=== PATIENT | female | born 1965 | race Caucasian/White ===

== ENCOUNTER → 2018-05-23 15:01 | Outpatient (CLI) | payer BC, SELFPAY ==
[2018-05-27 09:25] LABS: HPV Reflexed? NOT INDICATED
--- OUTSIDE RECORDS SUMMARY | 2018-07-19 07:21 | XMS RPT_ITS ---
:1965 Author Organization [facility] Care Team Providers Name Role Phone SINTIA STILL Referring Unavailable [facility] (MOTORCYCLE MECHANIC) Attending Unavailable IQRA VILLALPANDO Attending Unavailable [facility] (MOTORCYCLE MECHANIC) Referring Unavailable SINTIA STILL Attending Unavailable SINTIA STILL Attending Unavailable Reanna Estrella Attending Unavailable Reanna Estrella Referring Unavailable Tomasa Still Primary Care Unavailable PROBLEMS PROBLEMS DATE TYPE CONDITION / CODE ATTENDING STATUS SOURCE 05/23/2018 Unknown Z12.4 - Encounter Reanna Estrella Active Daryl for screening for Community malignant neoplasm [facility] / Repository Z12.4(ICD-10) 01/13/2018 Active Unknown / SINTIA STILL Active [facility] UNK(Unknown) R [place] Repository 01/07/2018 Active Impaired fasting NA Active [facility] glucose / [place] R73.01(ICD-10) Repository 01/16/2008 Active Essential NA Active [facility] (primary) [place] hypertension / Repository I10(ICD-10) 10/15/2017 Active Hyperglycemia, NA Active [facility] unspecified / [facility] [place] R73.9(ICD-10) Repository 10/15/2017 Active Pure NA Active [facility] hypercholesterolem [place] ia, unspecified / Repository E78.00(ICD-10) PROCEDURES PROCEDURES No Procedure Records FoundRESULTS RESULTS PAP I-G W/RFX HRHPV Collected: 05/23/2018 Status: F Source: [place] 11:45 AM [facility] REPOSITORY Order Comment: CYTOLOGY INFORMATION: - CLINICAL INFORMATION: - DATE LMP/MENOPAUSE: 05/04/18 LMP - COLLECTION VIAL: Thin Prep Vial - DRY CLEANER HAND SOURCE: CERVICAL/ENDOCERVICAL - COLLECTION TECHNIQUE: BRUSH/SPATULA Specimen Comment: [id number] Specimen Comment: Source.............Cervix;Endocervix Specimen Comment: LMP / Prev Treat...[id number]=[id number] Specimen Comment: No. of containers..01 ThinPrep Vial TYPE CODE TESTS RESULT OUT OF RANGE REFERENCE UNITS LAB L7400.0800 . Normal DIAGN Comment Result Comment: NEGATIVE FOR INTRAEPITHELIAL LESION AND MALIGNANCY. LAB L7400.0900 . Normal ADEQ Comment Result Comment: Satisfactory for evaluation. Endocervical and/or squamous metaplastic cells (endocervical component) are present. LAB L7400.1400 . Normal PERFORM Comment Result Comment: Meeta Hyde, Supervisory Jackscrew Worker (ASCP) LAB L7400.2575 . Normal TEST METHOD Comment Result Comment: This liquid based ThinPrep(R) pap test was screened with the use of an image guided system. LAB L7400.2600 . Normal . COMM LAB L7400.2700 . Normal PAPSMR Comment Result Comment: The Pap smear is a screening test designed to aid in the detection of premalignant and malignant conditions of the uterine cervix. It is not a diagnostic procedure and should not be used as the sole means of detecting cervical cancer. Both false-positive and false-negative reports do occur. LAB L7400.2800 . Normal HPV RFLX Comment Result Comment: The HPV DNA reflex criteria were not met with this specimen result therefore, no HPV testing was performed. Performed at: [address] [id number] [place]: Maribel Whiting MD, Phone: [phone] Performed By: #### L7400.0350 #### [facility] (refer to report for specific site) refer to report for address and phone number FECAL OCCULT BLD Collected: 05/23/2018 Status: F Source: [facility] 5:57 AM [facility] REPOSITORY TYPE CODE TESTS RESULT OUT OF REFERENCE UNITS RANGE LAB IFO Negative Immuno Negative FOB Result Comment: This test was developed and its performance characteristics determined by [facility]'s [facility] ([facility]). It has not been cleared or approved by the FDA. [facility] is regulated under CLIA as qualified to perform high-complexity testing. This test is used for clinical purposes. It should not be regarded as investigational or for research. Performed By: #### IFOBT #### [facility] [address] [place], [place] [address] PROGRESS Observed: 05/01/2018 Status: COMPLETED Source: [place] 8:52 AM [facility] [place] REPOSITORY HNO ID: [id number] Author: Sintia Still Service: (none) Author Type: Physician Type: Progress Notes Filed: 05/01/2018 10:43 AM Note Text: Chief Complaint Patient presents with: Follow Up HPI Rachel Terry is a 52 year old female who presents here today for follow-up of chronic situational insomnia. blood pressure. . HTN, doing well. Patient denies any exertional chest pain, dyspnea, palpitations, syncope, orthopnea, edema or paroxysmal nocturnal dyspnea. adherent to current regimen without side effects from medication. No current symptoms. She doesn't need any refills right now. Lorazepam. Uses Past medical history, appointments, medications, allergies reviewed. Previous Medical History PAST MEDICAL HISTORY Diagnosis Date - Anxiety - Cataracts, bilateral seeing telecommunications specialist - Essential hypertension, benign 01/16/2008 - Mitral valve disorders(424.0) 11/12/2008 - Obesity, unspecified 03/01/2007 Previous Surgical History PAST SURGICAL HISTORY Procedure Laterality Date - DANDC, DIAG AND/OR THERAPEUTIC - DENTAL SURGERY PROCEDURE wisdom teeth removed - EXCIS VAGINAL SEPTUM uterine - REPAIR OF NASAL SEPTUM removed septum Family History FAMILY HISTORY Problem Relation Age of Onset - Hypertension Father - Heart Father heart disease - Diabetes Mother - Heart Paternal Grandmother - None Sister - None Brother - None Brother Patient Allergies ALLERGIES Allergen Reactions - Hctz [Hydrochloroth* Rash - Sulfa (Sulfonamide * Hives Current Medications Current Outpatient Prescriptions on File Prior to Visit: lisinopril (ZESTRIL, PRINIVIL) 10 mg tablet Take 1 tablet by mouth once daily. metoprolol succinate ER (TOPROL XL) 100 mg Tb24 Take 1 tablet by mouth once daily. melatonin 10 mg tab Take 1 tablet by mouth at bedtime as needed. No current facility-administered medications on file prior to visit. Social History Social History Marital status: Spouse name: Regi Years of education: Number of children: 2 Occupational History Occupation Employer Comment [employer]* Social History Main Topics Smoking status: Never Smoker Smokeless tobacco: Never Used Alcohol use: No Drug use: No Sexual activity: Yes Partners with: Female ROS: General: Feels well, no weight changes, fever, chills. HEENT: No sinus congestion, earache, sore throat. Cardiac: No chest pain, palpitations, shortness of breath Resp: No cough, wheeze. GI: No reflux symptoms, food intolerance, bowel changes. : No urinary frequency, dysuria. MS: No pain or joint complaints. PHYSICAL EXAMINATION BP 129/68 (BP Site: Left Arm, BP Position: Sitting, BP Cuff Size: Large Adult) Pulse 71 Temp 37.1 ?C (98.8 ?F) Resp 16 Ht 167.6 cm (5' 6) Wt 97.2 kg (214 lb 3.2 oz) LMP 03/11/2018 BMI 34.57 kg/m? General: Alert and oriented, no distress, pleasant and cooperative. Heart: Regular, normal S1 and S2, no murmurs, rubs, or gallops Lungs: Clear to auscultation bilaterally Abdomen: Benign Extremities: Feet/ankles without edema, posterior tibial pulses full and symmetrical Health Maintenance List MAMMOGRAM due on 02/24/2017 PAP EVERY 5 YEARS due on 06/07/2017 HPV EVERY 5 YEARS due on 06/07/2017 FECAL OCCULT BLOOD due on 07/30/2017 INFLUENZA(1) due on 02/25/2018 DTAP,TDAP,TD(2 - Td) due on 11/12/2018 ANNUAL PCP TEAM CHRONIC DISEASE VISIT due on 01/13/2019 BP CONTROLLED (<130/80) due on 05/01/2019 DIABETES SCREEN due on 01/07/2021 LIPID SCREEN due on 10/15/2022 Data reviewed Lab Results Component Value Date/Time CHOL 178 10/15/2017 09:45 AM HDL 35 (L) 10/15/2017 09:45 AM LDL 118 (H) 10/15/2017 09:45 AM HBA1C 5.6 01/07/2018 08:53 AM TSH 3.880 04/21/2013 09:01 AM PDMP website checked and validated. All prescriptions have been APPROPRIATELY filled. No suspicious activity was identified. 05/01/2018 by Sintia Still MD Assessment/Plan: (I10) Essential hypertension, benign (primary encounter diagnosis) Comment: bp well controlled. Plan: Continue regimen (F51.02) Adjustment insomnia Comment: Using the lorazepam 1 mg about every other day on average. Encourage her to cut that down to a couple of times a week in order to avoid getting into a habituation to the medication. Plan: See orders (Z12.11) Encounter for screening fecal occult blood testing Comment: Plan: FECAL OCCULT BLOOD TEST Routine Signed Prescriptions Disp Refills LORazepam (ATIVAN) 1 mg tablet 90 tablet 0 Sig: Take 0.5-1 tablets by mouth every 8 hours as needed for Anxiety for up to 180 days. ISAAC Class: C-IV DANIELLA: No RTO: Sintia Still MD CNOV Observed: 05/01/2018 Status: COMPLETED Source: [place] 8:40 AM [facility] REPOSITORY Office Visit (FPWADS) RACHEL TERRY ([id number]) 1965 F Date Time Provider Department 05/01/18 8:40 AM SINTIA STILL During your visit today, we recorded the following information about you: Temperature Pulse Respiration Blood pressure 98.8 degrees 71/minute 16/minute 129/68 Weight Height Last Period 97.2 kg 1.676 m 03/11/18 Sintia Still MD 05/01/2018 10:43 AM Signed Chief Complaint Patient presents with: Follow Up HPI Rachel Florian Mimi is a 52 year old female who presents here today for follow-up of chronic situational insomnia. blood pressure. . HTN, doing well. Patient denies any exertional chest pain, dyspnea, palpitations, syncope, orthopnea, edema or paroxysmal nocturnal dyspnea. adherent to current regimen without side effects from medication. No current symptoms. She doesn't need any refills right now. Lorazepam. Uses Past medical history, appointments, medications, allergies reviewed. Previous Medical History PAST MEDICAL HISTORY Diagnosis Date - Anxiety - Cataracts, bilateral seeing telecommunications specialist - Essential hypertension, benign 01/16/2008 - Mitral valve disorders(424.0) 11/12/2008 - Obesity, unspecified 03/01/2007 Previous Surgical History PAST SURGICAL HISTORY Procedure Laterality Date - DANDC, DIAG AND/OR THERAPEUTIC - DENTAL SURGERY PROCEDURE wisdom teeth removed - EXCIS VAGINAL SEPTUM uterine - REPAIR OF NASAL SEPTUM removed septum Family History FAMILY HISTORY Problem Relation Age of Onset - Hypertension Father - Heart Father heart disease - Diabetes Mother - Heart Paternal Grandmother - None Sister - None Brother - None Brother Patient Allergies ALLERGIES Allergen Reactions - Hctz [Hydrochloroth* Rash - Sulfa (Sulfonamide * Hives Current Medications Current Outpatient Prescriptions on File Prior to Visit: lisinopril (ZESTRIL, PRINIVIL) 10 mg tablet Take 1 tablet by mouth once daily. metoprolol succinate ER (TOPROL XL) 100 mg Tb24 Take 1 tablet by mouth once daily. melatonin 10 mg tab Take 1 tablet by mouth at bedtime as needed. No current facility-administered medications on file prior to visit. Social History Social History Marital status: Spouse name: Regi Years of education: Number of children: 2 Occupational History Occupation Employer Comment [employer] Social History Main Topics Smoking status: Never Smoker Smokeless tobacco: Never Used Alcohol use: No Drug use: No Sexual activity: Yes Partners with: Female ROS: General: Feels well, no weight changes, fever, chills. HEENT: No sinus congestion, earache, sore throat. Cardiac: No chest pain, palpitations, shortness of breath Resp: No cough, wheeze. GI: No reflux symptoms, food intolerance, bowel changes. : No urinary frequency, dysuria. MS: No pain or joint complaints. PHYSICAL EXAMINATION BP 129/68 (BP Site: Left Arm, BP Position: Sitting, BP Cuff Size: Large Adult) Pulse 71 Temp 37.1 ?C (98.8 ?F) Resp 16 Ht 167.6 cm (5' 6) Wt 97.2 kg (214 lb 3.2 oz) LMP 03/11/2018 BMI 34.57 kg/m? General: Alert and oriented, no distress, pleasant and cooperative. Heart: Regular, normal S1 and S2, no murmurs, rubs, or gallops Lungs: Clear to auscultation bilaterally Abdomen: Benign Extremities: Feet/ankles without edema, posterior tibial pulses full and symmetrical Health Maintenance List MAMMOGRAM due on 02/24/2017 PAP EVERY 5 YEARS due on 06/07/2017 HPV EVERY 5 YEARS due on 06/07/2017 FECAL OCCULT BLOOD due on 07/30/2017 INFLUENZA(1) due on 02/25/2018 DTAP,TDAP,TD(2 - Td) due on 11/12/2018 ANNUAL PCP TEAM CHRONIC DISEASE VISIT due on 01/13/2019 BP CONTROLLED (<130/80) due on 05/01/2019 DIABETES SCREEN due on 01/07/2021 LIPID SCREEN due on 10/15/2022 Data reviewed Lab Results Component Value Date/Time CHOL 178 10/15/2017 09:45 AM HDL 35 (L) 10/15/2017 09:45 AM LDL 118 (H) 10/15/2017 09:45 AM HBA1C 5.6 01/07/2018 08:53 AM TSH 3.880 04/21/2013 09:01 AM PDMP website checked and validated. All prescriptions have been APPROPRIATELY filled. No suspicious activity was identified. 05/01/2018 by Sintia Still MD Assessment/Plan: (I10) Essential hypertension, benign (primary encounter diagnosis) Comment: bp well controlled. Plan: Continue regimen (F51.02) Adjustment insomnia Comment: Using the lorazepam 1 mg about every other day on average. Encourage her to cut that down to a couple of times a week in order to avoid getting into a habituation to the medication. Plan: See orders (Z12.11) Encounter for screening fecal occult blood testing Comment: Plan: FECAL OCCULT BLOOD TEST Routine Signed Prescriptions Disp Refills LORazepam (ATIVAN) 1 mg tablet 90 tablet 0 Sig: Take 0.5-1 tablets by mouth every 8 hours as needed for Anxiety for up to 180 days. ISAAC Class: C-IV DANIELLA: No RTO: Sintia Still MD Referring Provider: SELF [200] Allergies As of Date: 05/01/2018 Noted Allergy Reaction HCTZ (HYDROCHLOROTHIAZIDE) 01/13/2018 2 - Rash SULFA (SULFONAMIDE ANTIBIOTICS) 05/13/2006 4 - Hives Date Reviewed: 05/01/2018 Reviewed by: Shawanda Owen Ma - Fully Assessed Reason for Visit: Follow Up [171] Primary Visit Diagnosis:Essential hypertension, benign [I10] Other Visit Diagnoses:Adjustment insomnia [F51.02] Encounter for screening fecal occult blood testing [Z12.11] Order(s):LORazepam (ATIVAN) 1 mg tabletTake 0.5-1 tablets by mouth every 8 hours as needed for Anxiety for up to 180 days.Disp: 90 tabletRfl: 0 FECAL OCCULT BLOOD TEST [SQIFOBT] Order #: [id number] FUTURE Prescriptions as of 05/01/2018 Sig: LORAZEPAM 1 MG TABLET Take 1 mg by mouth every 6 ho* LISINOPRIL 10 MG TABLET Take 1 tablet by mouth once d* METOPROLOL SUCCINATE ER 100 M* Take 1 tablet by mouth once d* MELATONIN 10 MG TABLET Take 1 tablet by mouth at bed* LORAZEPAM 1 MG TABLET Take 0.5-1 tablets by mouth e* Problem List As Of Date 05/01/2018 Noted Resolved ELEV BL PRES W/O HYPERTN [R03.0] INVALID FOR*11/12/2008 OBESITY NOS [E66.9] INVALID FOR* More... BENIGN HYPERTENSION [I10] INVALID FOR* MITRAL VALVE DISORDER [I05.9] INVALID FOR* More... Closed Fracture of Ankle [S82.899A] INVALID FOR* Adjustment insomnia [F51.02] INVALID FOR* Prescriptions ordered this encounter Disp Refills Start End LORAZEPAM 1 MG TABLET 90 t* 0 05/01/2018 10/28/2018 Class: Print RX Route: ORAL Sig: Take 0.5-1 tablets by mouth every 8 hours as needed for Anxiety for up to 180 days. Medications Discontinued During This Encounter predniSONE (DELTASONE) 10 mg tablet 21 t* 0 12/09/2017 05/01/2018 Sig: Day 1 take 6 tablets, day 2 take 5 tablets, day 3 take 4 tablets, day 4 take 3 tablets, day 5 take 2 tablets, day 6 take 1 tablet. Patient not taking: Reported on 01/13/2018 Disc: Reason for discontinue is not on file. Encounter Status:Closed by TOMASA STILL MD on 05/01/18 PROGRESS Observed: 01/13/2018 Status: COMPLETED Source: [place] 8:50 AM [facility] [place] REPOSITORY O ID: [id number] Author: Sintia Still Service: (none) Author Type: Physician Type: Progress Notes Filed: 01/13/2018 10:48 AM Note Text: Chief Complaint Patient presents with: recheck BP HPI Rachel Terry is a 52 year old female who presents here today for follow-up of bp. She's taking Toprol and likes it. She got hives after taking hydrochlorothiazide for a few weeks. She is back to plain lisinopril. Tolerating that fine, wonders if she really needs it. She shows me her home blood pressure log with readings in the 110-120 range typically. Prior to being on lisinopril she was showing up in the 130 range Past medical history, appointments, medications, allergies reviewed. Previous Medical History PAST MEDICAL HISTORY Diagnosis Date - Anxiety - Cataracts, bilateral seeing telecommunications specialist - Essential hypertension, benign 01/16/2008 - Mitral valve disorders(424.0) 11/12/2008 - Obesity, unspecified 03/01/2007 Previous Surgical History PAST SURGICAL HISTORY Procedure Laterality Date - DANDC, DIAG AND/OR THERAPEUTIC - DENTAL SURGERY PROCEDURE wisdom teeth removed - EXCIS VAGINAL SEPTUM uterine - REPAIR OF NASAL SEPTUM removed septum Family History FAMILY HISTORY Problem Relation Age of Onset - Hypertension Father - Heart Father heart disease - Diabetes Mother - Heart Paternal Grandmother - None Sister - None Brother - None Brother Patient Allergies ALLERGIES Allergen Reactions - Sulfa (Sulfonamide * Hives Current Medications Current Outpatient Prescriptions on File Prior to Visit: LORazepam (ATIVAN) 1 mg tablet Take 0.5-1 tablets by mouth every 8 hours as needed for Anxiety for up to 90 days. metoprolol succinate ER (TOPROL XL) 100 mg Tb24 Take 1 tablet by mouth once daily. lisinopril (ZESTRIL, PRINIVIL) 10 mg tablet Take 1 tablet by mouth once daily. predniSONE (DELTASONE) 10 mg tablet Day 1 take 6 tablets, day 2 take 5 tablets, day 3 take 4 tablets, day 4 take 3 tablets, day 5 take 2 tablets, day 6 take 1 tablet. (Patient not taking: Reported on 01/13/2018 ) melatonin 10 mg tab Take 1 tablet by mouth at bedtime as needed. No current facility-administered medications on file prior to visit. Social History Social History Marital status: Spouse name: Regi Years of education: Number of children: 2 Occupational History Occupation Employer Comment [employer]* Social History Main Topics Smoking status: Never Smoker Smokeless tobacco: Never Used Alcohol use: No Drug use: No Sexual activity: Yes Partners with: Female ROS: General: Feels well, no weight changes, fever, chills. Sided symptoms status quo. HEENT: No sinus congestion, earache, sore throat. Cardiac: No chest pain, palpitations, shortness of breath Resp: No cough, wheeze. GI: No reflux symptoms, food intolerance, bowel changes. : No urinary frequency, dysuria. MS: No pain or joint complaints. PHYSICAL EXAMINATION BP 147/69 Pulse 70 Temp 36.8 ?C (98.3 ?F) Resp 18 Ht 167.6 cm (5' 6) Wt 97.5 kg (215 lb) SpO2 99% BMI 34.70 kg/m? Last 1 Encounter BP Readings: Date: BP: 01/13/2018 142/78 General: Alert and oriented, no distress, pleasant and cooperative. Heart: Regular, normal S1 and S2, no murmurs, rubs, or gallops Lungs: Clear to auscultation bilaterally Abdomen: Benign Extremities: Feet/ankles without edema, posterior tibial pulses full and symmetrical Health Maintenance List BLOOD PRESSURE CONTROLLED due on 1984 MAMMOGRAM due on 02/24/2017 PAP EVERY 5 YEARS due on 06/07/2017 HPV EVERY 5 YEARS due on 06/07/2017 FECAL OCCULT BLOOD due on 07/30/2017 ANNUAL PCP TEAM CHRONIC DISEASE VISIT due on 01/24/2018 INFLUENZA(1) due on 02/25/2018 DTAP,TDAP,TD(2 - Td) due on 11/12/2018 DIABETES SCREEN due on 01/07/2021 LIPID SCREEN due on 10/15/2022 Data reviewed PDMP website checked and validated. All prescriptions have been APPROPRIATELY filled. No suspicious activity was identified. 01/13/2018 by Sintia Still MD Assessment/Plan: (I10) Essential hypertension, benign (primary encounter diagnosis) Comment: Blood pressure control is adequate office reading is correct the high by virtue of whitecoat hypertension Plan: lisinopril (ZESTRIL, PRINIVIL) 10 mg tablet, DISCONTINUED: lisinopril (ZESTRIL, PRINIVIL) 10 mg tablet Continue the lisinopril (I10) White coat syndrome with diagnosis of hypertension Comment: Plan: lisinopril (ZESTRIL, PRINIVIL) 10 mg tablet, DISCONTINUED: lisinopril (ZESTRIL, PRINIVIL) 10 mg tablet Signed Prescriptions Disp Refills lisinopril (ZESTRIL, PRINIVIL) 10 mg tablet 90 tablet 3 Sig: Take 1 tablet by mouth once daily. DANIELLA: No RTO: Blood pressure check within a few months. Sintia Still MD CNOV Observed: 01/13/2018 Status: COMPLETED Source: [place] 8:40 AM [facility] REPOSITORY Office Visit (FPWADS) RACHEL TERRY ([id number]) 1965 F Date Time Provider Department 01/13/18 8:40 AM SINTIA STILL FPWADS During your visit today, we recorded the following information about you: Temperature Pulse Respiration Blood pressure 98.3 degrees 70/minute 18/minute 142/78 Weight Height 97.5 kg 1.676 m Sintia Still MD 01/13/2018 10:48 AM Signed Chief Complaint Patient presents with: recheck BP HPI Rachel Florian Mimi is a 52 year old female who presents here today for follow-up of bp. She's taking Toprol and likes it. She got hives after taking hydrochlorothiazide for a few weeks. She is back to plain lisinopril. Tolerating that fine, wonders if she really needs it. She shows me her home blood pressure log with readings in the 110-120 range typically. Prior to being on lisinopril she was showing up in the 130 range Past medical history, appointments, medications, allergies reviewed. Previous Medical History PAST MEDICAL HISTORY Diagnosis Date - Anxiety - Cataracts, bilateral seeing telecommunications specialist - Essential hypertension, benign 01/16/2008 - Mitral valve disorders(424.0) 11/12/2008 - Obesity, unspecified 03/01/2007 Previous Surgical History PAST SURGICAL HISTORY Procedure Laterality Date - DANDC, DIAG AND/OR THERAPEUTIC - DENTAL SURGERY PROCEDURE wisdom teeth removed - EXCIS VAGINAL SEPTUM uterine - REPAIR OF NASAL SEPTUM removed septum Family History FAMILY HISTORY Problem Relation Age of Onset - Hypertension Father - Heart Father heart disease - Diabetes Mother - Heart Paternal Grandmother - None Sister - None Brother - None Brother Patient Allergies ALLERGIES Allergen Reactions - Sulfa (Sulfonamide * Hives Current Medications Current Outpatient Prescriptions on File Prior to Visit: LORazepam (ATIVAN) 1 mg tablet Take 0.5-1 tablets by mouth every 8 hours as needed for Anxiety for up to 90 days. metoprolol succinate ER (TOPROL XL) 100 mg Tb24 Take 1 tablet by mouth once daily. lisinopril (ZESTRIL, PRINIVIL) 10 mg tablet Take 1 tablet by mouth once daily. predniSONE (DELTASONE) 10 mg tablet Day 1 take 6 tablets, day 2 take 5 tablets, day 3 take 4 tablets, day 4 take 3 tablets, day 5 take 2 tablets, day 6 take 1 tablet. (Patient not taking: Reported on 01/13/2018 ) melatonin 10 mg tab Take 1 tablet by mouth at bedtime as needed. No current facility-administered medications on file prior to visit. Social History Social History Marital status: Spouse name: Regi Years of education: Number of children: 2 Occupational History Occupation Employer Comment [employer]* Social History Main Topics Smoking status: Never Smoker Smokeless tobacco: Never Used Alcohol use: No Drug use: No Sexual activity: Yes Partners with: Female ROS: General: Feels well, no weight changes, fever, chills. Sided symptoms status quo. HEENT: No sinus congestion, earache, sore throat. Cardiac: No chest pain, palpitations, shortness of breath Resp: No cough, wheeze. GI: No reflux symptoms, food intolerance, bowel changes. : No urinary frequency, dysuria. MS: No pain or joint complaints. PHYSICAL EXAMINATION BP 147/69 Pulse 70 Temp 36.8 ?C (98.3 ?F) Resp 18 Ht 167.6 cm (5' 6) Wt 97.5 kg (215 lb) SpO2 99% BMI 34.70 kg/m? Last 1 Encounter BP Readings: Date: BP: 01/13/2018 142/78 General: Alert and oriented, no distress, pleasant and cooperative. Heart: Regular, normal S1 and S2, no murmurs, rubs, or gallops Lungs: Clear to auscultation bilaterally Abdomen: Benign Extremities: Feet/ankles without edema, posterior tibial pulses full and symmetrical Health Maintenance List BLOOD PRESSURE CONTROLLED due on 1984 MAMMOGRAM due on 02/24/2017 PAP EVERY 5 YEARS due on 06/07/2017 HPV EVERY 5 YEARS due on 06/07/2017 FECAL OCCULT BLOOD due on 07/30/2017 ANNUAL PCP TEAM CHRONIC DISEASE VISIT due on 01/24/2018 INFLUENZA(1) due on 02/25/2018 DTAP,TDAP,TD(2 - Td) due on 11/12/2018 DIABETES SCREEN due on 01/07/2021 LIPID SCREEN due on 10/15/2022 Data reviewed [facility] website checked and validated. All prescriptions have been APPROPRIATELY filled. No suspicious activity was identified. 01/13/2018 by Sintia Still MD Assessment/Plan: (I10) Essential hypertension, benign (primary encounter diagnosis) Comment: Blood pressure control is adequate office reading is correct the high by virtue of whitecoat hypertension Plan: lisinopril (ZESTRIL, PRINIVIL) 10 mg tablet, DISCONTINUED: lisinopril (ZESTRIL, PRINIVIL) 10 mg tablet Continue the lisinopril (I10) White coat syndrome with diagnosis of hypertension Comment: Plan: lisinopril (ZESTRIL, PRINIVIL) 10 mg tablet, DISCONTINUED: lisinopril (ZESTRIL, PRINIVIL) 10 mg tablet Signed Prescriptions Disp Refills lisinopril (ZESTRIL, PRINIVIL) 10 mg tablet 90 tablet 3 Sig: Take 1 tablet by mouth once daily. DANIELLA: No RTO: Blood pressure check within a few months. Sintia Still MD Referring Provider: SELF [200] Allergies As of Date: 01/13/2018 Noted Allergy Reaction HCTZ (HYDROCHLOROTHIAZIDE) 01/13/2018 2 - Rash SULFA (SULFONAMIDE ANTIBIOTICS) 05/13/2006 4 - Hives Date Reviewed: 01/13/2018 Reviewed by: Mari Esteban Ma - Fully Assessed Reason for Visit: recheck BP [Other] Primary Visit Diagnosis:Essential hypertension, benign [I10] Other Visit Diagnosis:White coat syndrome with diagnosis of hypertension [I10] Order(s):lisinopril (ZESTRIL, PRINIVIL) 10 mg tabletTake 1 tablet by mouth once daily.Disp: 90 tabletRfl: 3 Prescriptions as of 01/13/2018 Sig: LORAZEPAM 1 MG TABLET Take 0.5-1 tablets by mouth e* METOPROLOL SUCCINATE ER 100 M* Take 1 tablet by mouth once d* LISINOPRIL 10 MG TABLET Take 1 tablet by mouth once d* PREDNISONE 10 MG TABLET Day 1 take 6 tablets, day 2 t* Patient not taking: Reported on 01/13/2018 MELATONIN 10 MG TABLET Take 1 tablet by mouth at bed* Problem List As Of Date 01/13/2018 Noted Resolved ELEV BL PRES W/O HYPERTN [R03.0] INVALID FOR*11/12/2008 OBESITY NOS [E66.9] INVALID FOR* More... BENIGN HYPERTENSION [I10] INVALID FOR* MITRAL VALVE DISORDER [I05.9] INVALID FOR* More... Closed Fracture of Ankle [S82.899A] INVALID FOR* Prescriptions ordered this encounter Disp Refills Start End LISINOPRIL 10 MG TABLET 90 t* 3 01/13/2018 01/13/2018 Route: ORAL Sig: Take 1 tablet by mouth once daily. LISINOPRIL 10 MG TABLET 90 t* 3 01/13/2018 01/13/2019 Route: ORAL Sig: Take 1 tablet by mouth once daily. Medications Discontinued During This Encounter lisinopril (ZESTRIL, PRINIVIL) 10 mg* 30 t* 0 12/11/2017 01/13/2018 Route: ORAL Sig: Take 1 tablet by mouth once daily. Disc: Reason for discontinue is not on file. lisinopril (ZESTRIL, PRINIVIL) 10 mg* 90 t* 3 01/13/2018 01/13/2018 Route: ORAL Sig: Take 1 tablet by mouth once daily. Disc: Reason for discontinue is not on file. Follow-up and Disposition History Recorded Encounter Status:Closed by TOMASA STILL MD on 01/13/18 BASIC METABOLIC PANL Collected: 01/07/2018 Status: F Source: [place] 8:53 AM [facility] REPOS[facility]ORY TYPE CODE TESTS RESULT OUT OF REFERENCE UNITS RANGE LAB GLU 74-99 mg/dL Glucose 93 Result Comment: The [place] [employer] (ADA) provides guidance for cutoff values for fasting glucose and random glucose. The ADA defines fasting as no caloric intake for at least 8 hours. Fas ting plasma glucose results between 100 to 125 mg/dL indicate increased risk for diabetes (prediabetes). Fasting plasma glucose results greater than or equal to 126 mg/dL meet the criteria for diagnosis of diabetes. In the absence of unequivocal hyperglycemia, results should be confirmed by repeat testing. In a patient with classic symptoms of hyperglycemia or hyperglycemic crisis, random plasma glucose results greater than or equal to 200 mg/dL meet the criteria for diagnosis of diabetes. Reference: Standards of Medical Care in Diabetes 2016, [place] [employer]. Diabetes Care. 2016.39(Suppl 1). LAB BUN 7-21 mg/dL BUN 12 LAB CRET 0.58-0.96 mg/dL Creatinine 0.82 LAB NA 136-144 mmol/L Sodium 141 LAB K 3.7-5.1 mmol/L Potassium 4.1 LAB CL 97-105 mmol/L Chloride 103 LAB CO2 22-30 mmol/L CO2 26 LAB AGAP 9-18 mmol/L Anion Gap 12 LAB CA 8.5-10.2 mg/dL Calcium, Total 9.4 LAB GFRAA eGFR- Amer. >60 LAB GFRNAA . eGFR-All Other Races >60 Result Comment: eGFR (Estimated GFR) Units of measure: mL/min/1.73 meters squared eGFR is derived from the reexpressed MDRD Study equation using the following parameters: serum creatinine, age, gender and race. The creatinine assay has been calibrated to be traceable to IDMS. An eGFR <60 mL/min/1.73m2 for >3 months is consistent with chronic kidney disease. Refer to KDOQI guidelines for clinical interpretation. In patients with unstable renal function, e.g. those with acute kidney injury, the eGFR may not accurately reflect actual GFR. Performed By: #### BMP, HBA1C #### [facility] [address] [id number] HEMOGLOBIN A1C Collected: 01/07/2018 Status: F Source: [place] 8:53 AM [facility] REPOSITORY TYPE CODE TESTS RESULT OUT OF REFERENCE UNITS RANGE LAB HGBA1C 4.3-5.6 % Hemoglobin A1c 5.6 LAB HBA0 mg/dL Est. Average Glucose 114 Result Comment: eAG: (Estimated average glucose) is a calculated value from HgbA1c and is commercial sales representative of the average blood glucose level in the last 2-3 month period. Performed By: #### BMP, HBA1C #### [facility] [address] [place], [place] [address] RICARDO Observed: 12/11/2017 Status: COMPLETED Source: [place] 12:00 AM [facility] REPOSITORY Telephone ([facility]) RACHEL TERRY ([id number]) 1965 F Date Time Provider Department 12/11/17 IQRA VILLALPANDO ([facility]) [facility] During your visit today, we recorded the following information about you: Jose Gardner [employer] Machinist Psr 12/11/2017 11:47 AM Signed Patient stopped by and stated lisinopril prescription should be written for 1 tablet once daily not 3 tablets. Provider on duty resent corrected prescription Dulce Bansal APRN.ANGEL 12/11/2017 11:51 AM Signed Addended by: DULCE BANSAL on: 12/11/2017 11:51 AM Modules accepted: Orders Allergies As of Date: 12/11/2017 Noted Allergy Reaction SULFA (SULFONAMIDE ANTIBIOTICS) 05/13/2006 4 - Hives Date Reviewed: 12/09/2017 Reviewed by: Mari Esteban Ma - Fully Assessed Reason for Visit: Medication Problem [65] Order(s):lisinopril (ZESTRIL, PRINIVIL) 10 mg tabletTake 1 tablet by mouth once daily.Disp: 30 tabletRfl: 0 Prescriptions as of 12/11/2017 Sig: LISINOPRIL 10 MG TABLET Take 1 tablet by mouth once d* PREDNISONE 10 MG TABLET Day 1 take 6 tablets, day 2 t* LORAZEPAM 1 MG TABLET Take 0.5-1 tablets by mouth e* METOPROLOL SUCCINATE ER 100 M* Take 1 tablet by mouth once d* MELATONIN 10 MG TABLET Take 1 tablet by mouth at bed* Problem List As Of Date 12/11/2017 Noted Resolved ELEV BL PRES W/O HYPERTN [R03.0] INVALID FOR*11/12/2008 OBESITY NOS [E66.9] INVALID FOR* More... BENIGN HYPERTENSION [I10] INVALID FOR* MITRAL VALVE DISORDER [I05.9] INVALID FOR* More... Closed Fracture of Ankle [S82.899A] INVALID FOR* Prescriptions ordered this encounter Disp Refills Start End LISINOPRIL 10 MG TABLET 30 t* 0 12/11/2017 01/10/2018 Route: ORAL Sig: Take 1 tablet by mouth once daily. Medications Discontinued During This Encounter lisinopril (ZESTRIL, PRINIVIL) 10 mg* 30 t* 0 12/09/2017 12/11/2017 Route: ORAL Sig: Take 3 tablets by mouth once daily. Disc: Other Encounter Status:Closed by SPECIAL W[employer] COMBATANT CREWMAN JOSE ZUNIGA on 12/11/17 PROGRESS Observed: 12/09/2017 Status: COMPLETED Source: [place] 7:50 AM [facility] REPOSIT[facility] HNO ID: [id number] Author: Iqra Nickerson ([employer]) Goucher Service: (none) Author Type: Nurse Practitioner Type: Progress Notes Filed: 12/09/2017 8:21 AM Note Text: Subjective HPI HPI Rachel Terry is a 52 year old female who presents today for CC of itchy hives This started about 2 days ago on her sides and has spread. She has two theories why she may have the rash. A month ago she started using a new detergent and then 6 weeks ago she was started on a bp pill that has a diuretic in it. She has tried benadryl and it did nothing for the itching. ACTIVE PROBLEM LIST Obesity, Unspecified Essential Hypertension, Benign Mitral Valve Disorders(424.0) Closed Fracture of Ankle BP 136/69 Pulse 100 Temp 36.8 ?C (98.3 ?F) Resp 18 Ht 167.6 cm (5' 6) Wt 98.9 kg (218 lb) SpO2 100% BMI 35.19 kg/m? ALLERGIES Allergen Reactions - Sulfa (Sulfonamide * Hives Current Outpatient Prescriptions: LORazepam (ATIVAN) 1 mg tablet Take 0.5-1 tablets by mouth every 8 hours as needed for Anxiety for up to 90 days. Disp: 90 tablet Rfl: 0 metoprolol succinate ER (TOPROL XL) 100 mg Tb24 Take 1 tablet by mouth once daily. Disp: 90 tablet Rfl: 3 lisinopril-hydrochlorothiazide (PRINZIDE,ZESTORETIC) 10-12.5 mg per tablet Take 1 tablet by mouth once daily. Disp: 30 tablet Rfl: 1 melatonin 10 mg tab Take 1 tablet by mouth at bedtime as needed. Disp: Rfl: 0 No current facility-administered medications for this visit. Review of Systems Constitutional: Negative for chills, fever and malaise/fatigue. HENT: Negative for congestion and sore throat. Respiratory: Negative for cough, shortness of breath and wheezing. Gastrointestinal: Negative for abdominal pain, nausea and vomiting. Musculoskeletal: Negative for joint pain and myalgias. Skin: Positive for itching and rash. Objective Physical Exam Constitutional: She is oriented to person, place, and time and well-developed, well-nourished, and in no distress. No distress. HENT: Head: Normocephalic and atraumatic. Eyes: Conjunctivae and EOM are normal. Pupils are equal, round, and reactive to light. Pulmonary/Chest: Effort normal. No respiratory distress. Musculoskeletal: She exhibits edema (noted to both her feet, 1+). Neurological: She is alert and oriented to person, place, and time. Gait normal. GCS score is 15. Skin: Skin is warm and dry. Rash (red macular erythema noted to her armpits the sides of her abdomen, the back of her legs and buttocks and feet,) noted. She is not diaphoretic. Psychiatric: Affect and judgment normal. ASSESSMENT/PLAN: 1. Allergic reaction, initial encounter - ICD9: 995.3, ICD10: T78.40XA (primary diagnosis) - most likely due to drug reaction - PREDNISONE 10 MG TABLET * Do not NSAIDs during this 5 day course (ibuprofen, naproxen, Motrin, Aleve, Advil) Tylenol only during prednisone use * Follow up with primary care provider if no improvement with treatment 2. Essential hypertension, benign - ICD9: 401.1, ICD10: I10 - Recommended regular aerobic exercise. - Recommend home blood pressure monitoring, to bring results in on next visit - Goal of BP <130/80 - LISINOPRIL 10 MG TABLET refilled without the HCTZ, I do believe that is the reason for the rash, we will trial taking it out and see if there is improvement in the rash and patient instructed to f/u with PCP as scheduled in 4 weeks Iqra Villalpando APRN.CNP CNOV Observed: 12/09/2017 Status: COMPLETED Source: [place] 7:45 AM [facility] REPOSITORY Office Visit ([facility]) RACHEL TERRY ([id number]) 1965 F Date Time Provider Department 12/09/17 7:45 AM IQRA VILLALPANDO ([facility]) [facility] During your visit today, we recorded the following information about you: Temperature Pulse Respiration Blood pressure 98.3 degrees 100/minute 18/minute 136/69 Weight Height 98.9 kg 1.676 m Iqra Villalpando APRN.CNP 12/09/2017 8:21 AM Signed Subjective HPI HPI Rachelrenuka Terry is a 52 year old female who presents today for CC of itchy hives This started about 2 days ago on her sides and has spread. She has two theories why she may have the rash. A month ago she started using a new detergent and then 6 weeks ago she was started on a bp pill that has a diuretic in it. She has tried benadryl and it did nothing for the itching. ACTIVE PROBLEM LIST Obesity, Unspecified Essential Hypertension, Benign Mitral Valve Disorders(424.0) Closed Fracture of Ankle BP 136/69 Pulse 100 Temp 36.8 ?C (98.3 ?F) Resp 18 Ht 167.6 cm (5' 6) Wt 98.9 kg (218 lb) SpO2 100% BMI 35.19 kg/m? ALLERGIES Allergen Reactions - Sulfa (Sulfonamide * Hives Current Outpatient Prescriptions: LORazepam (ATIVAN) 1 mg tablet Take 0.5-1 tablets by mouth every 8 hours as needed for Anxiety for up to 90 days. Disp: 90 tablet Rfl: 0 metoprolol succinate ER (TOPROL XL) 100 mg Tb24 Take 1 tablet by mouth once daily. Disp: 90 tablet Rfl: 3 lisinopril-hydrochlorothiazide (PRINZIDE,ZESTORETIC) 10-12.5 mg per tablet Take 1 tablet by mouth once daily. Disp: 30 tablet Rfl: 1 melatonin 10 mg tab Take 1 tablet by mouth at bedtime as needed. Disp: Rfl: 0 No current facility-administered medications for this visit. Review of Systems Constitutional: Negative for chills, fever and malaise/fatigue. HENT: Negative for congestion and sore throat. Respiratory: Negative for cough, shortness of breath and wheezing. Gastrointestinal: Negative for abdominal pain, nausea and vomiting. Musculoskeletal: Negative for joint pain and myalgias. Skin: Positive for itching and rash. Objective Physical Exam Constitutional: She is oriented to person, place, and time and well-developed, well-nourished, and in no distress. No distress. HENT: Head: Normocephalic and atraumatic. Eyes: Conjunctivae and EOM are normal. Pupils are equal, round, and reactive to light. Pulmonary/Chest: Effort normal. No respiratory distress. Musculoskeletal: She exhibits edema (noted to both her feet, 1+). Neurological: She is alert and oriented to person, place, and time. Gait normal. GCS score is 15. Skin: Skin is warm and dry. Rash (red macular erythema noted to her armpits the sides of her abdomen, the back of her legs and buttocks and feet,) noted. She is not diaphoretic. Psychiatric: Affect and judgment normal. ASSESSMENT/PLAN: 1. Allergic reaction, initial encounter - ICD9: 995.3, ICD10: T78.40XA (primary diagnosis) - most likely due to drug reaction - PREDNISONE 10 MG TABLET * Do not NSAIDs during this 5 day course (ibuprofen, naproxen, Motrin, Aleve, Advil) Tylenol only during prednisone use * Follow up with primary care provider if no improvement with treatment 2. Essential hypertension, benign - ICD9: 401.1, ICD10: I10 - Recommended regular aerobic exercise. - Recommend home blood pressure monitoring, to bring results in on next visit - Goal of BP <130/80 - LISINOPRIL 10 MG TABLET refilled without the HCTZ, I do believe that is the reason for the rash, we will trial taking it out and see if there is improvement in the rash and patient instructed to f/u with PCP as scheduled in 4 weeks DENILSON Ivey APRN.CNP 12/09/2017 8:04 AM Signed ASSESSMENT/PLAN: 1. Allergic reaction, initial encounter - ICD9: 995.3, ICD10: T78.40XA (primary diagnosis) - most likely due to drug reaction - PREDNISONE 10 MG TABLET * Do not NSAIDs during this 5 day course (ibuprofen, naproxen, Motrin, Aleve, Advil) Tylenol only during prednisone use * Follow up with primary care provider if no improvement with treatment 2. Essential hypertension, benign - ICD9: 401.1, ICD10: I10 - Recommended regular aerobic exercise. - Recommend home blood pressure monitoring, to bring results in on next visit - Goal of BP <130/80 - LISINOPRIL 10 MG TABLET Referring Provider: SELF [200] Allergies As of Date: 12/09/2017 Noted Allergy Reaction SULFA (SULFONAMIDE ANTIBIOTICS) 05/13/2006 4 - Hives Date Reviewed: 12/09/2017 Reviewed by: Mari Esteban Ma - Fully Assessed Reason for Visit: rash on body [Other] Primary Visit Diagnosis:Allergic reaction, initial encounter [T78.40XA] Other Visit Diagnosis:Essential hypertension, benign [I10] Order(s):predniSONE (DELTASONE) 10 mg tabletDay 1 take 6 tablets, day 2 take 5 tablets, day 3 take 4 tablets, day 4 take 3 tablets, day 5 take 2 tablets, day 6 take 1 tablet.Disp: 21 tabletRfl: 0 lisinopril (ZESTRIL, PRINIVIL) 10 mg tabletTake 3 tablets by mouth once daily.Disp: 30 tabletRfl: 0 Prescriptions as of 12/09/2017 Sig: LORAZEPAM 1 MG TABLET Take 0.5-1 tablets by mouth e* METOPROLOL SUCCINATE ER 100 M* Take 1 tablet by mouth once d* PREDNISONE 10 MG TABLET Day 1 take 6 tablets, day 2 t* LISINOPRIL 10 MG TABLET Take 3 tablets by mouth once * MELATONIN 10 MG TABLET Take 1 tablet by mouth at bed* Medication notes this encounter LISINOPRIL 10 MG-HYDROCHLOROTHIAZIDE 12.5 MG TABLET >> Iqra Villalpando APRN.CNP 12/09/2017 8:00 AM hives Problem List As Of Date 12/09/2017 Noted Resolved ELEV BL PRES W/O HYPERTN [R03.0] INVALID FOR*11/12/2008 OBESITY NOS [E66.9] INVALID FOR* More... BENIGN HYPERTENSION [I10] INVALID FOR* MITRAL VALVE DISORDER [I05.9] INVALID FOR* More... Closed Fracture of Ankle [S82.899A] INVALID FOR* Other instructions from your clinician: ASSESSMENT/PLAN: 1. Allergic reaction, initial encounter - ICD9: 995.3, ICD10: T78.40XA (primary diagnosis) - most likely due to drug reaction - PREDNISONE 10 MG TABLET * Do not NSAIDs during this 5 day course (ibuprofen, naproxen, Motrin, Aleve, Advil) Tylenol only during prednisone use * Follow up with primary care provider if no improvement with treatment 2. Essential hypertension, benign - ICD9: 401.1, ICD10: I10 - Recommended regular aerobic exercise. - Recommend home blood pressure monitoring, to bring results in on next visit - Goal of BP <130/80 - LISINOPRIL 10 MG TABLET Prescriptions ordered this encounter Disp Refills Start End PREDNISONE 10 MG TABLET 21 t* 0 12/09/2017 Sig: Day 1 take 6 tablets, day 2 take 5 tablets, day 3 take 4 tablets, day 4 take 3 tablets, day 5 take 2 tablets, day 6 take 1 tablet. LISINOPRIL 10 MG TABLET 30 t* 0 12/09/2017 01/08/2018 Route: ORAL Sig: Take 3 tablets by mouth once daily. Medications Discontinued During This Encounter lisinopril-hydrochlorothiazide (PRIN* 30 t* 1 10/18/2017 12/09/2017 Route: ORAL Sig: Take 1 tablet by mouth once daily. Disc: Side Effects Encounter Status:Closed by IQRA VILLALPANDO on 12/09/17 PROGRESS Observed: 10/18/2017 Status: COMPLETED Source: [place] 1:10 PM [facility] REPOSITORY O ID: [id number] Author: Yumi Martinez ([facility] Service: (none) Author Type: Nurse Practitioner Type: Progress Notes Filed: 10/18/2017 5:57 PM Note Text: Chief Complaint Patient presents with: Med review-labs review HPI Rachel Terry is a 52 year old female who presents here today to review labs. Numbers up again. No devoted exercise through the winter. Now walking more. HTN: Ms. Terry indicates that she is feeling well and denies any symptoms referable to elevated blood pressure. Specifically denies headache, chest pain, palpitations, dyspnea and peripheral edema. Patient denies any side effects of her medication(s) and is compliant with their regimen. She does check BP's away from this office with average BP's in the 130/80's at the highest range. Rachel denies regular aerobic exercise, walks throughout her working day, miles each day. She watches her diet for sodium, low fat and low cholesterol most of the time. Last 3 Encounter BP Readings: Date: BP: 10/18/2017 155/82 01/24/2017 126/85 07/27/2016 128/82 Anxiety: rare use of Ativan, 1/2-1 tablet when unable to fall asleep. Reports ruminates over things. Component Latest Ref Rng AND Units 10/15/2017 Glucose 74 - 99 mg/dL 130 (H) BUN 7 - 21 mg/dL 11 Creatinine 0.58 - 0.96 mg/dL 0.62 Sodium 136 - 144 mmol/L 139 Potassium 3.7 - 5.1 mmol/L 4.0 Chloride 97 - 105 mmol/L 102 CO2 22 - 30 mmol/L 25 Anion Gap 9 - 18 mmol/L 12 Calcium 8.5 - 10.2 mg/dL 8.6 eGFR- >60 eGFR-All Other Races . >60 Cholesterol, Total <200 mg/dL 178 Triglyceride <150 mg/dL 123 HDL Cholesterol >39 mg/dL 35 (L) LDL Cholesterol <100 mg/dL 118 (H) Non HDL Cholesterol <130 mg/dL 143 (H) Fasting Time hrs 14 VLDL Cholesterol <30 mg/dL 25 TC:HDL Ratio <5.10 5.09 LDL:HDL Ratio <2.54 3.37 (H) Hemoglobin A1C 4.3 - 5.6 % 6.3 (H) Estimated Average Glucose mg/dL 134 Past medical history, appointments, medications, allergies reviewed. Previous Medical History PAST MEDICAL HISTORY Diagnosis Date - Anxiety - Cataracts, bilateral seeing telecommunications specialist - Essential hypertension, benign 01/16/2008 - Mitral valve disorders(424.0) 11/12/2008 - Obesity, unspecified 03/01/2007 Previous Surgical History PAST SURGICAL HISTORY Procedure Laterality Date - DANDC, DIAG AND/OR THERAPEUTIC - DENTAL SURGERY PROCEDURE wisdom teeth removed - EXCIS VAGINAL SEPTUM uterine - REPAIR OF NASAL SEPTUM removed septum Family History FAMILY HISTORY Problem Relation Age of Onset - Hypertension Father - Heart Father heart disease - Diabetes Mother - Heart Paternal Grandmother - None Sister - None Brother - None Brother Patient Allergies ALLERGIES Allergen Reactions - Sulfa (Sulfonamide * Hives Current Medications Current Outpatient Prescriptions on File Prior to Visit: LORazepam (ATIVAN) 1 mg tablet Take 0.5-1 tablets by mouth every 8 hours as needed for Anxiety. lisinopril (ZESTRIL, PRINIVIL) 10 mg tablet Take 1 tablet by mouth once daily. metoprolol succinate ER (TOPROL XL) 100 mg Tb24 Take 1 tablet by mouth once daily. melatonin 10 mg tab Take 1 tablet by mouth at bedtime as needed. No current facility-administered medications on file prior to visit. Social History Social History Marital status: Spouse name: Regi Years of education: Number of children: 2 Occupational History Occupation Employer Comment [employer]* Social History Main Topics Smoking status: Never Smoker Smokeless status: Never Used Alcohol use: No Drug use: No Sexual activity: Yes Partners with: Female Review of Symptoms REVIEW OF SYSTEMS GENERAL: No weight loss, malaise or fevers HEENT: Negative for frequent or significant headaches, No changes in hearing or vision, no nose bleeds or other nasal problems NECK: Negative for lumps, goiter, pain and significant neck swelling RESPIRATORY: Negative for cough, hemoptysis, wheezing, COPD, dyspnea or shortness of breath CARDIOVASCULAR: Negative for chest pain, leg swelling, hypertension, CHF or palpitations GI: No nausea, vomiting, or diarrhea, No heartburn or reflux symptoms and Constipation ENDOCRINE: Negative for cold or heat intolerance, polyuria, polydipsia and goiter EXAM: BP 140/90 Pulse 79 Resp 16 Wt 108.9 kg (240 lb) LMP 10/13/2017 (Exact Date) BMI 37.59 kg/m2 General Appearance: Well appearing, alert, in no acute distress, well-hydrated, well nourished., Overweight. Eyes: Anicteric sclera. Pupils are equally round and reactive to light. Extraocular movements are intact. . Oropharynx: Lips, mucosa, and tongue normal, teeth and gums normal, oropharynx normal. Neck: Supple, no adenopathy; thyroid symmetric, normal size, no bruits. Lungs: Lungs clear to auscultation. No wheezing, rhonchi, rales. Heart: RRR without murmur, gallop, or rubs. No ectopy. Extremities: No deformities, edema, skin discoloration, clubbing or cyanosis. Good capillary refill. . Health Maintenance List MAMMOGRAM due on 02/24/2017 PAP EVERY 5 YEARS due on 06/07/2017 HPV EVERY 5 YEARS due on 06/07/2017 FECAL OCCULT BLOOD due on 07/30/2017 INFLUENZA(Season Ended) due on 02/25/2018 TETANUS due on 11/12/2018 DIABETES SCREEN due on 10/15/2020 LIPID SCREEN due on 10/15/2022 ASSESSMENT/PLAN: 1. BENIGN HYPERTENSION - ICD9: 401.1, ICD10: I10 (primary diagnosis) - suboptimal control - Add HCTZ - Recommended regular aerobic exercise. - Recommend home blood pressure monitoring, to bring results in on next visit - Goal of BP <130/80 - Recheck BP in 3 weeks, nurse visit. Meantime continue with lifestyle modifications with diet and walking. She is given handout resources for carb counting - METOPROLOL SUCCINATE ER 100 MG TABLET,EXTENDED RELEASE 24 HR - LISINOPRIL 10 MG-HYDROCHLOROTHIAZIDE 12.5 MG TABLET - BASIC METABOLIC PNL 2. Anxiety - ICD9: 300.00, ICD10: F41.9 [facility] website checked and validated. All prescriptions have been APPROPRIATELY filled. No suspicious activity was identified.- 10/18/2017 by Yumi Heart, MSN [employer]STITUTE SCHOOL NURSE.RN CARE MANAGER - LORAZEPAM 1 MG TABLET 3. Impaired fasting glucose - ICD9: 790.21, ICD10: R73.01 - Will recheck labs in 3 months. Continue to work on diet and exercise. We discussed adding Metformin at this time, patient declines and wishes to recheck in 3 months and will re-assess at that time. - HGB A1C Yumi Heart, MSN [employer] SCHO[employer] NURSE.RN CARE MANAGER CNOV Observed: 10/18/2017 Status: COMPLETED Source: [place] 1:00 PM [facility] REPOSITORY Office Visit (FAMPWS) RACHEL TERRY ([id number]) 1965 F Date Time Provider Department 10/18/17 1:00 PM [facility] (MOTORCYCLE MECHANIC) JACPWS During your visit today, we recorded the following information about you: Pulse Respiration Blood pressure Weight 79/minute 16/minute 140/90 108.9 kg Last Period 10/13/17 [facility], MSN [employer] NURSE.RN CARE MANAGER 10/18/2017 5:57 PM Signed Chief Complaint Patient presents with: Med review-labs review HPI Rachel Terry is a 52 year old female who presents here today to review labs. ANDquot;Numbers up againANDquot;. No devoted exercise through the winter. Now walking more. HTN: Ms. Terry indicates that she is feeling well and denies any symptoms referable to elevated blood pressure. Specifically denies headache, chest pain, palpitations, dyspnea and peripheral edema. Patient denies any side effects of her medication(s) and is compliant with their regimen. She does check BP's away from this office with average BP's in the 130/80's at the highest range. Rachel denies regular aerobic exercise, walks throughout her working day, miles each day. She watches her diet for sodium, low fat and low cholesterol most of the time. Last 3 Encounter BP Readings: Date: BP: 10/18/2017 155/82 01/24/2017 126/85 07/27/2016 128/82 Anxiety: rare use of Ativan, 1/2-1 tablet when unable to fall asleep. Reports ruminates over ANDquot;thingsANDquot;. Component Latest Ref Rng ANDamp; Units 10/15/2017 Glucose 74 - 99 mg/dL 130 (H) BUN 7 - 21 mg/dL 11 Creatinine 0.58 - 0.96 mg/dL 0.62 Sodium 136 - 144 mmol/L 139 Potassium 3.7 - 5.1 mmol/L 4.0 Chloride 97 - 105 mmol/L 102 CO2 22 - 30 mmol/L 25 Anion Gap 9 - 18 mmol/L 12 Calcium 8.5 - 10.2 mg/dL 8.6 eGFR- ANDgt;60 eGFR-All Other Races . ANDgt;60 Cholesterol, Total ANDlt;200 mg/dL 178 Triglyceride ANDlt;150 mg/dL 123 HDL Cholesterol ANDgt;39 mg/dL 35 (L) LDL Cholesterol ANDlt;100 mg/dL 118 (H) Non HDL Cholesterol ANDlt;130 mg/dL 143 (H) Fasting Time hrs 14 VLDL Cholesterol ANDlt;30 mg/dL 25 TC:HDL Ratio ANDlt;5.10 5.09 LDL:HDL Ratio ANDlt;2.54 3.37 (H) Hemoglobin A1C 4.3 - 5.6 % 6.3 (H) Estimated Average Glucose mg/dL 134 Past medical history, appointments, medications, allergies reviewed. Previous Medical History PAST MEDICAL HISTORY Diagnosis Date - Anxiety - Cataracts, bilateral seeing telecommunications specialist - Essential hypertension, benign 01/16/2008 - Mitral valve disorders(424.0) 11/12/2008 - Obesity, unspecified 03/01/2007 Previous Surgical History PAST SURGICAL HISTORY Procedure Laterality Date - DANDamp;C, DIAG AND/OR THERAPEUTIC - DENTAL SURGERY PROCEDURE wisdom teeth removed - EXCIS VAGINAL SEPTUM uterine - REPAIR OF NASAL SEPTUM removed septum Family History FAMILY HISTORY Problem Relation Age of Onset - Hypertension Father - Heart Father heart disease - Diabetes Mother - Heart Paternal Grandmother - None Sister - None Brother - None Brother Patient Allergies ALLERGIES Allergen Reactions - Sulfa (Sulfonamide * Hives Current Medications Current Outpatient Prescriptions on File Prior to Visit: LORazepam (ATIVAN) 1 mg tablet Take 0.5-1 tablets by mouth every 8 hours as needed for Anxiety. lisinopril (ZESTRIL, PRINIVIL) 10 mg tablet Take 1 tablet by mouth once daily. metoprolol succinate ER (TOPROL XL) 100 mg Tb24 Take 1 tablet by mouth once daily. melatonin 10 mg tab Take 1 tablet by mouth at bedtime as needed. No current facility-administered medications on file prior to visit. Social History Social History Marital status: Spouse name: Regi Years of education: Number of children: 2 Occupational History Occupation Employer Comment [employer] Social History Main Topics Smoking status: Never Smoker Smokeless status: Never Used Alcohol use: No Drug use: No Sexual activity: Yes Partners with: Female Review of Symptoms REVIEW OF SYSTEMS GENERAL: No weight loss, malaise or fevers HEENT: Negative for frequent or significant headaches, No changes in hearing or vision, no nose bleeds or other nasal problems NECK: Negative for lumps, goiter, pain and significant neck swelling RESPIRATORY: Negative for cough, hemoptysis, wheezing, COPD, dyspnea or shortness of breath CARDIOVASCULAR: Negative for chest pain, leg swelling, hypertension, CHF or palpitations GI: No nausea, vomiting, or diarrhea, No heartburn or reflux symptoms and Constipation ENDOCRINE: Negative for cold or heat intolerance, polyuria, polydipsia and goiter EXAM: BP 140/90 Pulse 79 Resp 16 Wt 108.9 kg (240 lb) LMP 10/13/2017 (Exact Date) BMI 37.59 kg/m2 General Appearance: Well appearing, alert, in no acute distress, well-hydrated, well nourished., Overweight. Eyes: Anicteric sclera. Pupils are equally round and reactive to light. Extraocular movements are intact. . Oropharynx: Lips, mucosa, and tongue normal, teeth and gums normal, oropharynx normal. Neck: Supple, no adenopathy; thyroid symmetric, normal size, no bruits. Lungs: Lungs clear to auscultation. No wheezing, rhonchi, rales. Heart: RRR without murmur, gallop, or rubs. No ectopy. Extremities: No deformities, edema, skin discoloration, clubbing or cyanosis. Good capillary refill. . Health Maintenance List MAMMOGRAM due on 02/24/2017 PAP EVERY 5 YEARS due on 06/07/2017 HPV EVERY 5 YEARS due on 06/07/2017 FECAL OCCULT BLOOD due on 07/30/2017 INFLUENZA(Season Ended) due on 02/25/2018 TETANUS due on 11/12/2018 DIABETES SCREEN due on 10/15/2020 LIPID SCREEN due on 10/15/2022 ASSESSMENT/PLAN: 1. BENIGN HYPERTENSION - ICD9: 401.1, ICD10: I10 (primary diagnosis) - suboptimal control - Add HCTZ - Recommended regular aerobic exercise. - Recommend home blood pressure monitoring, to bring results in on next visit - Goal of BP ANDlt;130/80 - Recheck BP in 3 weeks, nurse visit. Meantime continue with lifestyle modifications with diet and walking. She is given handout resources for carb counting - METOPROLOL SUCCINATE ER 100 MG TABLET,EXTENDED RELEASE 24 HR - LISINOPRIL 10 MG-HYDROCHLOROTHIAZIDE 12.5 MG TABLET - BASIC METABOLIC PNL 2. Anxiety - ICD9: 300.00, ICD10: F41.9 OARRS website checked and validated. All prescriptions have been APPROPRIATELY filled. No suspicious activity was identified.- 10/18/2017 by [facility], MSN [employer] NURSE.RN CARE MANAGER - LORAZEPAM 1 MG TABLET 3. Impaired fasting glucose - ICD9: 790.21, ICD10: R73.01 - Will recheck labs in 3 months. Continue to work on diet and exercise. We discussed adding Metformin at this time, patient declines and wishes to recheck in 3 months and will re-assess at that time. - HGB A1C [facility], MSN [employer] NURSE.RN CARE MANAGER Referring Provider: SELF [[id number]] Allergies As of Date: 10/18/2017 Noted Allergy Reaction SULFA (SULFONAMIDE ANTIBIOTICS) 05/13/2006 4 - Hives Date Reviewed: 10/18/2017 Reviewed by: Jose ([facility]) SENTHIL Julien - Fully Assessed Reason for Visit: Med review-labs review [Other] Primary Visit Diagnosis:BENIGN HYPERTENSION [I10] Other Visit Diagnoses:Anxiety [F41.9] Impaired fasting glucose [R73.01] Order(s):LORazepam (ATIVAN) 1 mg tabletTake 0.5-1 tablets by mouth every 8 hours as needed for Anxiety for up to 90 days.Disp: 90 tabletRfl: 0 metoprolol succinate ER (TOPROL XL) 100 mg Er68Yvkg 1 tablet by mouth once daily.Disp: 90 tabletRfl: 3 lisinopril-hydrochlorothiazide (PRINZIDE,ZESTORETIC) 10-12.5 mg per tabletTake 1 tablet by mouth once daily.Disp: 30 tabletRfl: 1 BASIC METABOLIC PNL [SQBMP] Order #: [id number] FUTURE HGB A1C [VZTIJ2R] Order #: [id number] FUTURE Prescriptions as of 10/18/2017 Sig: LORAZEPAM 1 MG TABLET Take 0.5-1 tablets by mouth e* METOPROLOL SUCCINATE ER 100 M* Take 1 tablet by mouth once d* MELATONIN 10 MG TABLET Take 1 tablet by mouth at bed* LISINOPRIL 10 MG-HYDROCHLOROT* Take 1 tablet by mouth once d* Problem List As Of Date 10/18/2017 Noted Resolved ELEV BL PRES W/O HYPERTN [R03.0] INVALID FOR*11/12/2008 OBESITY NOS [E66.9] INVALID FOR* More... BENIGN HYPERTENSION [I10] INVALID FOR* MITRAL VALVE DISORDER [I05.9] INVALID FOR* More... Closed Fracture of Ankle [S82.899A] INVALID FOR* Prescriptions ordered this encounter Disp Refills Start End LORAZEPAM 1 MG TABLET 90 t* 0 10/18/2017 01/16/2018 Class: Print RX Route: ORAL Sig: Take 0.5-1 tablets by mouth every 8 hours as needed for Anxiety for up to 90 days. METOPROLOL SUCCINATE ER 100 MG TABLE* 90 t* 3 10/18/2017 Route: ORAL Sig: Take 1 tablet by mouth once daily. LISINOPRIL 10 MG-HYDROCHLOROTHIAZIDE* 30 t* 1 10/18/2017 Route: ORAL Sig: Take 1 tablet by mouth once daily. Medications Discontinued During This Encounter lisinopril (ZESTRIL, PRINIVIL) 10 mg* 90 t* 3 11/04/2016 10/18/2017 Route: ORAL Sig: Take 1 tablet by mouth once daily. Disc: Changing Therapy/Dosage Form LORazepam (ATIVAN) 1 mg tablet 90 t* 0 03/23/2017 10/18/2017 Class: Print RX Route: ORAL Sig: Take 0.5-1 tablets by mouth every 8 hours as needed for Anxiety. Disc: Reason for discontinue is not on file. metoprolol succinate ER (TOPROL XL) * 90 t* 3 11/04/2016 10/18/2017 Route: ORAL Sig: Take 1 tablet by mouth once daily. Disc: Reason for discontinue is not on file. Disposition: Return in about 1 month (around 11/17/2017). Follow-up and Disposition History Recorded Encounter Status:Closed by [facility] CNP on 10/18/17 BASIC METABOLIC PANL Collected: 10/15/2017 Status: F Source: [place] 9:45 AM [facility] REPOSITORY TYPE CODE TESTS RESULT OUT OF REFERENCE UNITS RANGE LAB GLU 74-99 mg/dL High Glucose 130 Result Comment: The [place] Diabetes Association (ADA) provides guidance for cutoff values for fasting glucose and random glucose. The ADA defines fasting as no caloric intake for at least 8 hours. Fas ting plasma glucose results between 100 to 125 mg/dL indicate increased risk for diabetes (prediabetes). Fasting plasma glucose results greater than or equal to 126 mg/dL meet the criteria for diagnosis of diabetes. In the absence of unequivocal hyperglycemia, results should be confirmed by repeat testing. In a patient with classic symptoms of hyperglycemia or hyperglycemic crisis, random plasma glucose results greater than or equal to 200 mg/dL meet the criteria for diagnosis of diabetes. Reference: Standards of Medical Care in Diabetes 2016, [place] Diabetes Association. Diabetes Care. 2016.39(Suppl 1). LAB BUN 7-21 mg/dL BUN 11 LAB CRET 0.58-0.96 mg/dL Creatinine 0.62 LAB NA 136-144 mmol/L Sodium 139 LAB K 3.7-5.1 mmol/L Potassium 4.0 LAB CL 97-105 mmol/L Chloride 102 LAB CO2 22-30 mmol/L CO2 25 LAB AGAP 9-18 mmol/L Anion Gap 12 LAB CA 8.5-10.2 mg/dL Calcium, Total 8.6 LAB GFRAA eGFR- Amer. >60 LAB GFRNAA . eGFR-All Other Races >60 Result Comment: eGFR (Estimated GFR) Units of measure: mL/min/1.73 meters squared eGFR is derived from the reexpressed MDRD Study equation using the following parameters: serum creatinine, age, gender and race. The creatinine assay has been calibrated to be traceable to IDMS. An eGFR <60 mL/min/1.73m2 for >3 months is consistent with chronic kidney disease. Refer to KDOQI guidelines for clinical interpretation. In patients with unstable renal function, e.g. those with acute kidney injury, the eGFR may not accurately reflect actual GFR. Performed By: #### BMP, LIPB, HBA1C #### [facility] [address] [place], [place] [address] LIPID PANEL, BASIC Collected: 10/15/2017 Status: F Source: [place] 9:45 AM [facility] REPOSITORY TYPE CODE TESTS RESULT OUT OF REFERENCE UNITS RANGE LAB CHOL <200 mg/dL Cholesterol 178 Result Comment: <200 mg/dL, Desirable 200-239 mg/dL, Borderline high >239 mg/dL, High LAB TRIGLY <150 mg/dL Triglyceride 123 Result Comment: <150 mg/dL, Normal 150-199 mg/dL, Borderline high 200-499 mg/dL, High >499 mg/dL, Very high LAB HDL >39 mg/dL HDL-Cholesterol Low 35 Result Comment: 40-59 mg/dL, Acceptable >59 mg/dL, High: Negative risk factor for coronary heart disease <40 mg/dL, Low: Positive risk factor for coronary heart disease LAB LDL <100 mg/dL LDL-Cholesterol High 118 Result Comment: <100 mg/dL, Optimal 100-129 mg/dL, Near optimal/above optimal 130-159 mg/dL, Borderline high 160-189 mg/dL, High >189 mg/dL, Very high Secondary prevention optimal LDL Cholesterol levels are recommended to be < 70 mg/dL LAB NONHDL <130 mg/dL Non HDL High Cholesterol 143 Result Comment: <130 mg/dL, Optimal 130-159 mg/dL, Near optimal/above optimal 160-189 mg/dL, Borderline high 190-219 mg/dL, High >219 mg/dL, Very high Secondary prevention optimal non HDL Cholesterol levels are recommended to be < 100 mg/dL LAB FT hrs Fasting Time 14 LAB VLDL <30 mg/dL VLDL Cholesterol 25 LAB TCHDL <5.10 TC:HDL Ratio 5.09 LAB LDLHDL <2.54 High LDL:HDL Ratio 3.37 Result Comment: Reference: 1. National Cholesterol Education Program ATP III Guideline At-A-Glance Quick Desk Reference: National Heart, Lung, and Blood [place]. National Institutes of Health. 2001: NIH Publication No. 01-3305. 2. An International Atherosclerosis Society position paper: global recommendations for the management of dyslipidemia: executive summary, Atherosclerosis. 2014: 232(2):410-413. Performed By: #### BMP, LIPB, HBA1C #### [facility] [employer] [address] [place] [address] HEMOGLOBIN A1C Collected: 10/15/2017 Status: F Source: [place] 9:45 AM [facility] REPOSITORY TYPE CODE TESTS RESULT OUT OF REFERENCE UNITS RANGE LAB HGBA1C 4.3-5.6 % High Hemoglobin A1c 6.3 LAB HBA0 mg/dL Est. Average Glucose 134 Result Comment: eAG: (Estimated average glucose) is a calculated value from HgbA1c and is commercial sales representative of the average blood glucose level in the last 2-3 month period. Performed By: #### BMP, LIPB, HBA1C #### [facility] [employer] [address] [place], [place] [address] ALLERGIES ALLERGIES DATE TYPE / NAME / CODE REACTION SEVERITY SOURCE CODE 01/13/2018 DRUG HYDROCHLOROTHIAZIDE RASH [place] INGREDI/41 Clinic Main [id number]([facility] OMED CT) Repository 05/13/2006 Drug SULFA (SULFONAMIDE HIVES [place] Class/4195 ANTIBIOTICS) Clinic Main [id number]([facility] [place] ED [facility]) Repository ENCOUNTERS ENCOUNTERS ADMIT/DISCHARGE ACCOUNT ADMITTING ENCOUNTER LOCATION SOURCE NUMBER CLASS 05/23/2018 [id number] [facility] Repository 05/01/2018/05/03/20 [id number] Ambulatory [address] Main [place] Repository 01/13/2018/01/17/20 [id number] Ambulatory [address] Main [place] Repository 01/07/2018/01/08/20 [id number] Ambulatory [address] Main [place] Repository 12/09/2017/12/13/19 [id number] Ambulatory [address] Main [place] Repository 10/18/2017/10/20/19 [id number] Ambulatory [address] Main [place] Repository 10/15/2017/10/16/19 [id number] Ambulatory [address] Repository PAYERS PAYERS ENCOUNTER GUARANTOR PAYER SUBSCRIBER SOURCE 05/23/2018 REGI W Primary RACHEL K Daryl [id number] Insurance:ANTHEMPolic BLACKBURNDOB: [facility] [place]: [id number] Repository [address]Vmk: [id number]) Date:[id number] [phone] () [id number], [place] [address]RO: 05/23/2018 Secondary NOT GIVENUNK [place] Insurance:SELF PAY [facility] Number: Effective Repository Date:2018-05-23
== END ==
LOC: LAB 15:07 → LABSPEC 15:14
PROVIDERS: Family Provider Family Medicine; PCP Family Medicine; Referring Provider Obstetrics & Gynecology; Visit Provider Obstetrics & Gynecology
DX: Z12.4 Encounter for screening for malignant neoplasm of cervix (principal)
CPT/HCPCS: 88175; G0145

== ENCOUNTER → 2018-07-18 08:02 | Outpatient (CLI) | payer BC, SELFPAY ==
--- NOTE | 2018-07-18 08:04 | BI_ITS ---
MAMMOGRAPHY - BILATERAL SCREENING REASON FOR EXAM: Female, 53 years old. Routine annual screening examination. PERTINENT HISTORY: Aunt with breast cancer. TECHNIQUE: Digital bilateral breast elva (3D mammographic acquisition) in the CC and MLO projections. 2-D mediolateral oblique (MLO) and craniocaudad (CC) views of both breasts were obtained. CAD: Full Field Digital Mammography with Computer Added Detection was performed. COMPARISON: Comparison is made with prior study dated April 30, 2017 and February 25, 2016. FINDINGS: Breast Composition: There are scattered areas of fibroglandular density. There are no dominant masses or suspicious calcifications. Stable appearance of a small bilateral benign-appearing axillary lymph nodes. No other significant abnormalities are identified. There has been no significant change since the prior study. BI/SCREENING MAMM (CAD), BILAT IMPRESSION: Stable bilateral screening mammogram. Yearly follow-up mammogram recommended. (A) ASSESSMENT CATEGORY: BIRADS Category 2: Benign. A letter regarding these results will be sent to the patient by the facility within 30 days. Approximately 10% of breast cancers are not detected by mammography. A normal mammogram should not delay biopsy of a clinically suspicious abnormality. [id number] Electronically Signed: Jeremiah Nascimento MD at 9:31 EST Tel [phone], Service support ,
--- OUTSIDE RECORDS SUMMARY | 2018-09-19 08:05 | XMS RPT_ITS ---
:1965 Author Organization OHIP Care Team Providers Name Role Phone SINTIA STILL Attending Unavailable SINTIA STILL Attending Unavailable IQRA VILLALPANDO Attending Unavailable [facility] (CASUALTY CLAIM ADJUSTER) Attending Unavailable SINTIA STILL Referring Unavailable [facility] (CASUALTY CLAIM ADJUSTER) Referring Unavailable Reanna Estrella Attending Unavailable Reanna Estrella Referring Unavailable Tomasa Still Primary Care Unavailable Reanna Estrella Attending Unavailable Reanna Estrella Referring Unavailable Tomasa Still Primary Care Unavailable PROBLEMS PROBLEMS DATE TYPE CONDITION / CODE ATTENDING STATUS SOURCE 05/23/2018 Unknown Z12.4 - Encounter Reanna Estrella Active Daryl for screening for Community malignant neoplasm [facility] / Repository Z12.4(ICD-10) 01/13/2018 Active Unknown / SINTIA STILL Active [facility] UNK(Unknown) R [place] Repository 01/07/2018 Active Impaired fasting NA Active [facility] glucose / [place] R73.01(ICD-10) Repository 01/16/2008 Active Essential NA Active [facility] (primary) [place] hypertension / Repository I10(ICD-10) 10/15/2017 Active Hyperglycemia, NA Active [facility] unspecified / [place] R73.9(ICD-10) Repository 10/15/2017 Active Pure NA Active [facility] hypercholesterolem [place] ia, unspecified / Repository E78.00(ICD-10) PROCEDURES PROCEDURES No Procedure Records FoundRESULTS RESULTS SCREENING MAMM (CAD), Observed: 07/18/2018 Status: F Source: DARYL BILAT 8:04 AM [facility] [place] [facility] Imaging Services [address] [place] [address] SCREENING MAMM (CAD), BILAT MR#: [id number] Acct: [id number] Name: RACHEL TERRY Rep #: [id number] : 1965 F 53 From: Jeremiah Nascimento MD PCP: Tomasa Still MD Status: REG CL Study: SCREENING MAMM (CAD), BILAT Date of Exam: 07/18/18 Exam# [id number] Ordering Dr: Reanna Estrella MD MAMMOGRAPHY - BILATERAL SCREENING REASON FOR EXAM: Female, 53 years old. Routine annual screening examination. PERTINENT HISTORY: Aunt with breast cancer. TECHNIQUE: Digital bilateral breast elva (3D mammographic acquisition) in the CC and MLO projections. 2-D mediolateral oblique (MLO) and craniocaudad (CC) views of both breasts were obtained. CAD: Full Field Digital Mammography with Computer Added Detection was performed. COMPARISON: Comparison is made with prior study dated April 30, 2017 and February 25, 2016. FINDINGS: Breast Composition: There are scattered areas of fibroglandular density. There are no dominant masses or suspicious calcifications. Stable appearance of a small bilateral benign-appearing axillary lymph nodes. No other significant abnormalities are identified. There has been no significant change since the prior study. BI/SCREENING MAMM (CAD), BILAT IMPRESSION: Stable bilateral screening mammogram. Yearly follow-up mammogram recommended. (A) ASSESSMENT CATEGORY: BIRADS Category 2: Benign. A letter regarding these results will be sent to the patient by the facility within 30 days. Approximately 10% of breast cancers are not detected by mammography. A normal mammogram should not delay biopsy of a clinically suspicious abnormality. [id number] Electronically Signed: Jeremiah Nascimento MD at 9:31 EST Tel [phone], Service support , CC: Reanna Estrella MD; Tomasa Still MD Numerical Control Lathe Operator: Signed PAP I-G W/RFX HRHPV Collected: 05/23/2018 Status: F Source: DARYL 11:45 AM [facility] [place] Order Comment: CYTOLOGY INFORMATION: - CLINICAL INFORMATION: - DATE LMP/MENOPAUSE: 05/04/18 LMP - COLLECTION VIAL: Thin Prep Vial - TRAINING GENERALIST SOURCE: CERVICAL/ENDOCERVICAL - COLLECTION TECHNIQUE: BRUSH/SPATULA Specimen Comment: [id number] Specimen Comment: Source.............Cervix;Endocervix Specimen Comment: LMP / Prev Treat...KBI=[id number] Specimen Comment: No. of containers..01 ThinPrep Vial TYPE CODE TESTS RESULT OUT OF RANGE REFERENCE UNITS LAB L7400.0800 . Normal DIAGN Comment Result Comment: NEGATIVE FOR INTRAEPITHELIAL LESION AND MALIGNANCY. LAB L7400.0900 . Normal ADEQ Comment Result Comment: Satisfactory for evaluation. Endocervical and/or squamous metaplastic cells (endocervical component) are present. LAB L7400.1400 . Normal PERFORM Comment Result Comment: Meeta Hyde, Supervisory [employer] (ASCP) LAB L7400.2575 . Normal TEST METHOD [...] no HPV testing was performed. Performed at: - [facility] [place] [id number] [employer] Interaction Designer: Maribel Whiting MD, Phone: [phone] Performed By: #### L7400.0350 #### [facility] (refer to report for specific site) refer to report for address and phone number FECAL OCCULT BLD Collected: 05/23/2018 Status: F Source: [facility] 5:57 AM [facility] REPOSITORY TYPE CODE TESTS RESULT OUT OF REFERENCE UNITS RANGE LAB IFO Negative Immuno Negative FOB Result Comment: This test was developed and its performance characteristics determined by [facility]'s [facility] [place] ([facility]). It has not been cleared or approved by the FDA. [facility] is regulated under CLIA as qualified to perform high-complexity testing. This test is used for clinical purposes. It should not be regarded as investigational or for research. Performed By: #### IFOBT #### [facility] [address] [address] PROGRESS Observed: 05/01/2018 Status: COMPLETED Source: ELEANOR 8:52 AM [facility] REPOSITORY HNO ID: [id number] Author: Sintia Still Service: (none) Author Type: [...] Date - Anxiety - Cataracts, bilateral seeing senior tax specialist - Essential hypertension, benign 01/16/2008 - [...] children: 2 Occupational History Occupation Employer Comment [employer]* Social History Main Topics Smoking status: Never [...] MD CNOV Observed: 05/01/2018 Status: COMPLETED Source: ELEANOR 8:40 AM [facility] REPOSITORY Office Visit (FPWADS) RACHEL TERRY ([id number]) 1965 F Date Time Provider Department 05/01/18 [...] Date - Anxiety - Cataracts, bilateral seeing senior tax specialist - Essential hypertension, benign 01/16/2008 - [...] children: 2 Occupational History Occupation Employer Comment [employer]* Social History Main Topics Smoking status: Never [...] FECAL OCCULT BLOOD TEST [SQIFOBT] Order #: [id number] FUTURE Prescriptions as of 05/01/2018 Sig: LORAZEPAM [...] INVALID FOR* More... Closed Fracture of Ankle [V14.234Z] INVALID FOR* Adjustment insomnia [F51.02] INVALID FOR* [...] 05/01/18 PROGRESS Observed: 01/13/2018 Status: COMPLETED Source: E[place] 8:50 AM [facility] REPOSITORY O ID: [id number] Author: Sintia Still Service: (none) Author Type: [...] Date - Anxiety - Cataracts, bilateral seeing senior tax specialist - Essential hypertension, benign 01/16/2008 - [...] 2 Occupational History Occupation Employer Comment [employer]* Social History Main Topics Smoking status: Never [...] LIPID SCREEN due on 10/15/2022 Data reviewed [facility] website checked and validated. All prescriptions have [...] pressure check within a few months. Sintia Stlil MD CNOV Observed: 01/13/2018 Status: COMPLETED Source: E[place] 8:40 AM [facility] REPOSITORY Office Visit (FPWADS) RACHEL TERYR ([id number]) 1965 F Date Time Provider Department 01/13/18 8:40 AM SINTIA STILL During your visit today, we recorded the following information about you: Temperature Pulse Respiration Blood pressure 98.3 degrees 70/minute 18/minute 142/78 Weight Height 97.5 kg 1.676 m Sintia tSill MD 01/13/2018 10:48 AM Signed Chief Complaint [...] Date - Anxiety - Cataracts, bilateral seeing senior tax specialist - Essential hypertension, benign 01/16/2008 - [...] children: 2 Occupational History Occupation Employer [employer]* Social History Main Topics Smoking status: Never [...] LIPID SCREEN due on 10/15/2022 [facility]. All prescriptions have been APPROPRIATELY filled. No suspicious activity was identified. 01/13/2018 by Sintia tSill MD Assessment/Plan: (I10) Essential hypertension, benign (primary [...] INVALID FOR* More... Closed Fracture of Ankle [S82.891Y] INVALID FOR* Prescriptions ordered this encounter Disp [...] METABOLIC PANL Collected: 01/07/2018 Status: F Source: E[place]AN[place] 8:53 AM [facility] REPOSITORY TYPE CODE TESTS RESULT OUT OF REFERENCE UNITS RANGE LAB GLU 74-99 mg/dL Glucose 93 Result Comment: The [place] Diabetes Association (ADA) provides guidance for cutoff [...] Standards of Medical Care in Diabetes 2016, [place] Diabetes Association. Diabetes Care. 2016.39(Suppl 1). LAB [...] has been calibrated to be traceable to IDPR. An eGFR <60 mL/min/1.73m2 for >3 months is consistent with chronic kidney disease. Refer to KDOQI guidelines for clinical interpretation. In patients with unstable renal function, e.g. those with acute kidney injury, the eGFR may not accurately reflect actual GFR. Performed By: #### BMP, HBA1C #### [facility] [address] [place], [place] [address] HEMOGLOBIN A1C Collected: 01/07/2018 Status: F Source: E[place] 8:53 AM [facility] REPOSITORY TYPE CODE TESTS RESULT OUT OF REFERENCE UNITS RANGE LAB HGBA1C 4.3-5.6 % Hemoglobin A1c 5.6 LAB HBA0 mg/dL Est. Average Glucose 114 Result Comment: eAG: (Estimated average glucose) is a calculated value from HgbA1c and is labor representative of the average blood glucose level in the last 2-3 month period. Performed By: #### BMP, HBA1C #### [facility] [address] [place], [place] [address] CNPN Observed: 12/11/2017 Status: COMPLETED Source: ELEANOR 12:00 AM [facility] REPOSITORY Telephone (FPWADS) RACHEL TERRY ([id number]) 1965 F Date Time Provider Department 12/11/17 IQRA VILLALPANDO ([facility]) FPWADS During your visit today, we recorded the following information about you: Jose Kendra Analytical Scientist Psr 12/11/2017 11:47 AM Signed Patient stopped [...] once daily. Disc: Other Encounter Status:Closed by DEDICATED LOCAL TRUCK DRIVER JOSE ZUNIGA on 12/11/17 PROGRESS Observed: 12/09/2017 Status: COMPLETED Source: E[place] 7:50 AM [facility] [place] REPOSITORY HNO ID: [id number] Author: Iqra Nickerson ([facility]) Goucher Service: (none) Author Type: Nurse Practitioner [...] PCP as scheduled in 4 weeks DENILSON IveyOV Observed: 12/09/2017 Status: COMPLETED Source: E[place] 7:45 AM [facility] REPOSITORY Office Visit (WALKWA) RACHEL TERRY ([id number]) 1965 F Date Time Provider Department 12/09/17 7:45 AM IQRA VILLALPANDO (ANGEL) WALKAMBREEN During your visit today, we recorded the following information about you: Temperature Pulse Respiration Blood pressure 98.3 degrees 100/minute 18/minute 136/69 Weight Height 98.9 kg 1.676 m Iqra Villalpando APRN.CNP 12/09/2017 8:21 AM Signed Subjective HPI HPI Rachel Florian Mimi is a 52 [...] MG-HYDROCHLOROTHIAZIDE 12.5 MG TABLET >> Iqra Villalpando APRN.PROPERTY INSPECTOR 12/09/2017 8:00 AM hives Problem List As [...] 12/09/17 PROGRESS Observed: 10/18/2017 Status: COMPLETED Source: E[place]OR 1:10 PM [facility] REPOSITORY O ID: [id number] Author: Yumi Martinez (Brayan) Sly Service: (none) Author Type: Nurse Practitioner Type: [...] Date - Anxiety - Cataracts, bilateral seeing senior tax specialist - Essential hypertension, benign 01/16/2008 - [...] children: 2 Occupational History Occupation Employer Comment [employer]* Social History Main Topics Smoking status: Never [...] was identified.- 10/18/2017 by Yumi Heart, MSN SERVICE SECRETARY.PROPERTY INSPECTOR - LORAZEPAM 1 MG TABLET 3. Impaired fasting glucose - ICD9: 790.21, ICD10: R73.01 - Will recheck labs in 3 months. Continue to work on diet and exercise. We discussed adding Metformin at this time, patient declines and wishes to recheck in 3 months and will re-assess at that time. - HGB A1C Yumi Heart MSN SERVICE SECRETARY.PROPERTY INSPECTOR CNOV Observed: 10/18/2017 Status: COMPLETED Source: ELEAN[place] 1:00 PM [facility] REPOSITORY Office Visit (FAMPWS) RACHEL TERRY ([id number]) 1965 F Date Time Provider Department 10/18/17 1:00 PM YUMI HAERT (CASUALTY CLAIM ADJUSTER) FAMPWS During your visit today, we recorded the following information about you: Pulse Respiration Blood pressure Weight 79/minute 16/minute 140/90 108.9 kg Last Period 10/13/17 Yumi Heart MSN SERVICE SECRETARY.PROPERTY INSPECTOR 10/18/2017 5:57 PM Signed Chief Complaint Patient [...] Date - Anxiety - Cataracts, bilateral seeing senior tax specialist - Essential hypertension, benign 01/16/2008 - [...] 2 Occupational History Occupation Employer Comment [employer]* Social History Main Topics Smoking status: Never [...] was identified.- 10/18/2017 by Yumi Heart, MSN SERVICE SECRETARY.PROPERTY INSPECTOR - LORAZEPAM 1 MG TABLET 3. Impaired fasting glucose - ICD9: 790.21, ICD10: R73.01 - Will recheck labs in 3 months. Continue to work on diet and exercise. We discussed adding Metformin at this time, patient declines and wishes to recheck in 3 months and will re-assess at that time. - HGB A1C Yumi Heart, MSN SERVICE SECRETARY.PROPERTY INSPECTOR Referring Provider: SELF [200] Allergies As of Date: 10/18/2017 Noted Allergy Reaction SULFA (SULFONAMIDE ANTIBIOTICS) 05/13/2006 4 - Hives Date Reviewed: 10/18/2017 Reviewed by: Jose ([facility]) SENTHIL Julien - Fully Assessed Reason for Visit: Med review-labs review [Other] Primary Visit Diagnosis:BENIGN HYPERTENSION [I10] Other Visit Diagnoses:Anxiety [F41.9] Impaired fasting glucose [R73.01] Order(s):LORazepam (ATIVAN) 1 mg tabletTake 0.5-1 tablets by mouth every 8 hours as needed for Anxiety for up to 90 days.Disp: 90 tabletRfl: 0 metoprolol succinate ER (TOPROL XL) 100 mg Tp50Pqds 1 tablet by mouth once daily.Disp: 90 tabletRfl: 3 lisinopril-hydrochlorothiazide (PRINZIDE,ZESTORETIC) 10-12.5 mg per tabletTake 1 tablet by mouth once daily.Disp: 30 tabletRfl: 1 BASIC METABOLIC PNL [SQBMP] Order #: [id number] FUTURE HGB A1C [WIWSS1Q] Order #: [id number] FUTURE Prescriptions as of 10/18/2017 Sig: LORAZEPAM [...] METABOLIC PANL Collected: 10/15/2017 Status: F Source: E[place] 9:45 AM [facility] [place] REPOSITORY TYPE CODE TESTS RESULT OUT OF REFERENCE UNITS RANGE LAB GLU 74-99 mg/dL High Glucose 130 Result Comment: The [place] Diabetes Association (ADA) provides guidance for cutoff [...] Standards of Medical Care in Diabetes 2016, [place] Diabetes Association. Diabetes Care. 2016.39(Suppl 1). LAB [...] Performed By: #### BMP, LIPB, HBA1C #### [facility] [address] [place] [id number] LIPID PANEL, BASIC Collected: 10/15/2017 Status: F Source: ELEANOR 9:45 AM [facility] REPOSITORY TYPE CODE TESTS [...] Desk Reference: National Heart, Lung, and Blood [place]. National Institutes of Health. 2001: NIH Publication No. 01-3305. 2. An International Atherosclerosis Society position paper: global recommendations for the management of dyslipidemia: executive summary, Atherosclerosis. 2014: 232(2):410-413. Performed By: #### BMP, LIPB, HBA1C #### [facility] [address] [place], [place] [address] HEMOGLOBIN A1C Collected: 10/15/2017 Status: F Source: ELEANOR 9:45 AM [facility] REPOSITORY TYPE CODE TESTS RESULT OUT OF REFERENCE UNITS RANGE LAB HGBA1C 4.3-5.6 % High Hemoglobin A1c 6.3 LAB HBA0 mg/dL Est. Average Glucose 134 Result Comment: eAG: (Estimated average glucose) is a calculated value from HgbA1c and is labor representative of the average blood glucose level in the last 2-3 month period. Performed By: #### BMP, LIPB, HBA1C #### [facility] [address] [place], [place] [id number] ALLERGIES ALLERGIES DATE TYPE / NAME / CODE REACTION SEVERITY SOURCE CODE 01/13/2018 DRUG HYDROCHLOROTHIAZIDE RASH [place] INGREDI/41 Clinic Main [id number]([facility] OMED CT) Repository 05/13/2006 Drug SULFA (SULFONAMIDE HIVES [place] Class/4195 ANTIBIOTICS) Clinic Main [address]([facility] ED CT) Repository ENCOUNTERS ENCOUNTERS ADMIT/DISCHARGE ACCOUNT ADMITTING ENCOUNTER LOCATION SOURCE NUMBER CLASS 07/18/2018 [id number] [facility] ing:OPBI Repository 05/23/2018 [id number] [facility] ing:LABSPEC Repository 05/01/2018/05/03/[id number] Repository 01/13/2018/01/17/[id number] Repository 01/07/2018/01/08/[id number]ulatory [address] Repository 12/09/2017/12/13/[id number] Repository 10/18/2017/10/20/[id number] Repository 10/15/2017/10/16/[id number] Repository PAYERS PAYERS ENCOUNTER GUARANTOR PAYER SUBSCRIBER SOURCE 07/18/2018 REGI [id number] Insurance:ANTHEMPolic BLACKBURNDOB: Community [place] y Number: [id number], [place] [id number] Repository [address]Ukm: (330) Date:[id number] [phone] () [place], [place] [address]CN: 07/18/2018 Secondary NOT GIVENUNK Daryl Insurance:SELF PAY [facility] Number: Effective Repository Date:2018-05-26 05/23/2018 REGI [place] Primary RACHEL K Daryl [id number] Insurance:ANTHEMPolic BLACKBURNDOB: [facility] y Number: [id number] [id number] Repository [address]Fke: [phone]) Date:[id number] [phone] () [id number], [place] [address]RW: 05/23/2018 Secondary NOT GIVENUNK Daryl Insurance:SELF PAY [facility] Number: Effective Repository Date:2018-05-23
== END ==
PROVIDERS: Family Provider Family Medicine; PCP Family Medicine; Referring Provider Obstetrics & Gynecology; Visit Provider Obstetrics & Gynecology
DX: Z12.31 Encounter for screening mammogram for malignant neoplasm of breast (principal)
CPT/HCPCS: 77063; 77067

== ENCOUNTER → 2019-08-17 11:10 | Outpatient (CLI) | payer BC, SELFPAY ==
--- NOTE | 2019-08-17 11:15 | BI_ITS ---
MAMMOGRAPHY - BILATERAL SCREENING REASON FOR EXAM: Female, 54 years old. Routine annual screening examination. PERTINENT HISTORY: Aunts with breast cancer. TECHNIQUE: Digital bilateral breast jade (3D mammographic acquisition) in the CC and MLO projections. 2-D mediolateral oblique (MLO) and craniocaudad (CC) views of both breasts were obtained. CAD: Full Field Digital Mammography with Computer Added Detection was performed. COMPARISON: Comparison is made with prior examination dated July 18, 2018 and April 30, 2017. FINDINGS: Breast Composition: There are scattered areas of fibroglandular density. There are no dominant masses or suspicious calcifications. Stable appearance of the small bilateral benign appearing axillary lymph nodes. No other significant abnormalities are identified. There has been no significant change since the prior study. BI/SCREEN MAMM (CAD) W/JADE BILAT IMPRESSION: Stable bilateral screening mammogram. Yearly follow-up mammogram recommended. (A) ASSESSMENT CATEGORY: BIRADS Category 2: Benign. A letter regarding these results will be sent to the patient by the facility within 30 days. Approximately 10% of breast cancers are not detected by mammography. A normal mammogram should not delay biopsy of a clinically suspicious abnormality. [id number] Electronically Signed: Jeremiah Nascimento, at 13:21 EST , Service support ,
== END ==
LOC: BIRAD 11:12 → OPBI 11:14
PROVIDERS: PCP Family Medicine; Referring Provider Advanced Practice Midwife; Visit Provider Advanced Practice Midwife
DX: Z12.31 Encounter for screening mammogram for malignant neoplasm of breast (principal)
CPT/HCPCS: 77063; 77067

== ENCOUNTER 2020-09-09 15:14 | Outpatient (RCR) | payer BC, SELFPAY ==
[2020-09-09] MEDS: COVID-19 VACC, MRNA(PFIZER)/PF 30 MCG/0.3 ML SYRINGE IM (18:09)
[2020-09-30] MEDS: COVID-19 VACC, MRNA(PFIZER)/PF 30 MCG/0.3 ML SYRINGE IM (17:54)
== END 2020-09-09 23:59 ==
LOC: IMMUN 15:14
PROVIDERS: PCP Family Medicine; Visit Provider Family Medicine
DX: Z23 Encounter for immunization (principal)
CPT/HCPCS: 0001A; 0002A; 91300

== ENCOUNTER → 2020-12-10 15:01 | Outpatient (CLI) | payer BC, SELFPAY ==
--- NOTE | 2020-12-10 15:03 | BI_ITS ---
MAMMOGRAPHY - BILATERAL SCREENING REASON FOR EXAM: Female, 55 years old. Routine annual screening examination. PERTINENT HISTORY: Aunts with breast cancer. TECHNIQUE: Digital bilateral breast jade (3D mammographic acquisition) in the CC and MLO projections. 2-D mediolateral oblique (MLO) and craniocaudad (CC) views of both breasts were obtained. CAD: Full Field Digital Mammography with Computer Added Detection was performed. COMPARISON: Comparison is made with prior study dated 08/17/2019 and 07/18/2018. FINDINGS: Breast Composition: There are scattered areas of fibroglandular density. There are no dominant masses or suspicious calcifications. Stable benign-appearing bilateral axillary lymph nodes. No other significant abnormalities are identified. There has been no significant change since the prior study. BI/SCRN MAMM (CAD)W/JADE BILAT IMPRESSION: Stable bilateral screening mammogram. Yearly follow-up mammogram recommended. (A) ASSESSMENT CATEGORY: BIRADS Category 2: Benign. A letter regarding these results will be sent to the patient by the facility within 30 days. Approximately 10% of breast cancers are not detected by mammography. A normal mammogram should not delay biopsy of a clinically suspicious abnormality. [id number] Electronically Signed: Jeremiah Nascimento MD at 8:15 EDT , Service support ,
== END ==
PROVIDERS: PCP Family Medicine; Referring Provider Obstetrics & Gynecology; Visit Provider Obstetrics & Gynecology
DX: Z12.31 Encounter for screening mammogram for malignant neoplasm of breast (principal); Z80.3 Family history of malignant neoplasm of breast
CPT/HCPCS: 77063; 77067

== ENCOUNTER → 2020-12-10 16:23 | Outpatient (CLI) | payer BC, SELFPAY ==
[2020-12-30 20:34] LABS: HPV Reflexed? NOT INDICATED
== END ==
PROVIDERS: PCP Family Medicine; Visit Provider Obstetrics & Gynecology
DX: Z12.4 Encounter for screening for malignant neoplasm of cervix (principal)
CPT/HCPCS: 88175; G0145

== ENCOUNTER → 2022-01-06 | Outpatient (CLI) | payer BC, SELFPAY ==
--- NOTE | 2022-01-06 14:16 | BI_ITS ---
MAMMOGRAPHY - BILATERAL SCREENING REASON FOR EXAM: Female, 56 years old. Routine annual screening examination. PERTINENT HISTORY: Aunts with breast cancer. TECHNIQUE: Digital bilateral breast jade (3D mammographic acquisition) in the CC and MLO projections. 2-D mediolateral oblique (MLO) and craniocaudad (CC) views of both breasts were obtained. CAD: Full Field Digital Mammography with Computer Added Detection was performed. COMPARISON: Comparison is made with prior study dated 12/10/2020 and 08/17/2019. FINDINGS: Breast Composition: There are scattered areas of fibroglandular density. There are no dominant masses or suspicious calcifications. Stable benign-appearing bilateral axillary lymph nodes. No other significant abnormalities are identified. There has been no significant change since the prior study. BI/SCRN MAMM (CAD)W/JADE BILAT IMPRESSION: Stable bilateral screening mammogram. Yearly follow-up mammogram recommended. (A) ASSESSMENT CATEGORY: BIRADS Category 2: Benign. A letter regarding these results will be sent to the patient by the facility within 30 days. Approximately 10% of breast cancers are not detected by mammography. A normal mammogram should not delay biopsy of a clinically suspicious abnormality. [id number] Electronically Signed: Jeremiah Nascimento MD at 14:56 EDT ,
== END | disposition home or self-care (01) ==
LOC: OPBI 14:14
PROVIDERS: PCP Family Medicine; Visit Provider Obstetrics & Gynecology
DX: Z12.31 Encounter for screening mammogram for malignant neoplasm of breast (principal); Z80.3 Family history of malignant neoplasm of breast
CPT/HCPCS: 77063; 77067